=== PATIENT | male | born 1945 | race Caucasian/White ===

== ENCOUNTER 2022-08-27 09:59 | Day surgery (SDC) | payer MEDICARE, BC ==
[~2022-08-27] VITALS: Ht 182.9 cm; Wt 106.5 kg
[~2022-08-27 09:59] MED LIST: ALLO100T PO; ATEN50TA41 PO; ATOR40TA PO; LACT1CAP26 PO; LEVO200T8 PO; MULT-1085 PO; NABU-141 PO; SULF500T59 PO; TERA10CA4 PO
[2022-08-27 11:00] VITALS: BP 135/50
[2022-08-27 11:18] VITALS: BP 159/65
[2022-08-27 11:31] VITALS: BP 151/58
[2022-08-27] MEDS ORDERED: HYDR100T27 PO (11:41)
[2022-08-27] MEDS ORDERED: CALC667T6 PO (11:41)
[2022-08-27] MEDS ORDERED: LOSA100T58 PO (11:41)
[2022-08-27] MEDS ORDERED: ERGO125013 PO (11:41)
[2022-08-27] MEDS ORDERED: FENO145T26 PO (11:41)
[2022-08-27 11:46] VITALS: BP 152/57
[2022-08-27 12:01] VITALS: BP 149/55
== END 2022-08-27 12:05 | disposition home or self-care (01) ==
LOC: SSTAY O 09:59
PROVIDERS: ATTEND Radiology Vascular & Interventional Radiology
DX: T80.218A Other infection due to central venous catheter, initial encounter (principal); N18.9 Chronic kidney disease, unspecified; Y83.8 Other surgical procedures as the cause of abnormal reaction of the patient, or of later complication, without mention of misadventure at the time of the procedure; Y92.89 Other specified places as the place of occurrence of the external cause
CPT/HCPCS: 36589; A6258